=== PATIENT | male | born 1995 ===

== ENCOUNTER 2025-04-04 19:48 | Emergency (ER) | payer SELFPAY ==
[2025-04-04 19:51] VITALS: BP 131/79
[2025-04-04] MEDS: ADACEL 0.5 ML IM (22:59)
--- NOTE | 2025-04-05 00:53 | ED.GENMED ---
History of Present Illness
General
Chief Complaint: Skin Surface Trauma
Source: patient
Exam Limitations: none
Time Seen by Provider: 04/04/25 22:00
Nursing documentation reviewed up to this point in time: agreed with
History of Present Illness
History of Present Illness:
29-year-old male with no significant medical history presents to the ER for evaluation of a finger laceration. Patient cut his left middle finger in a metal gate and sustained a laceration to the palmar aspect of the digit. Came to the ER for
assessment. Unsure of his last tetanus shot. No other injuries or complaints.
Review of Systems
Review of Systems
All Other Systems: ROS reviewed and negative except as documented in HPI and ROS
Skin: Reports other (Finger laceration)
Phy Exam
Physical Exam
Physical Exam:
General: Well appearing and non-toxic
HEENT: protecting airway
Neck: appears supple
CV: No evidence of cyanosis
Resp: No accessory muscle use
Abd: Non-distended
Extremities: No deformities
Neuro: Alert
Psych: Normal affect
Skin: Patient has a 3 cm vertical linear laceration on the palmar aspect of the left third digit; no exposed flexor tendon on exploration of the wound through range of motion and good strength on flexion against resistance of the finger; no foreign
body noted in the wound; he does have some swelling of the soft tissue around the laceration he also has some slight swelling of the fourth digit�initially he had wedding ring in place but we were able to remove this
Scores
Heart Failure Risk
Heart Failure Risk Score: Not Applicable
Heart Score for Chest Pain Patients
STEMI patient?: Not applicable
Withdrawal Assessment of Alcohol
Withdrawal Assessment Completed?: Not applicable
Course
Orders/Labs/Results
Orders:
Orders
04/04/25 19:53
Finger(s)/Thumb 2 View Lt [CR Finger(s)/thumb Min 2 Vw Lt] Urgent
Comment:
Reason For Exam: pain/swelling/injury
Indicate Which Finger:: Middle Finger
04/04/25 22:55
Tetanus/Diphth/Acelpertussis [Adacel] 0.5 ml IM .ONCE ONE
Vital Signs
Initial and Last Documented VS:
Initial Vital Signs
Temp Pulse Resp BP Pulse Ox
36.8 C 74 18 131/79 100
04/04/25 19:51 04/04/25 19:51 04/04/25 19:51 04/04/25 19:51 04/04/25 19:51
Last Documented Vital Signs
Temp Pulse Resp BP Pulse Ox
36.8 C 74 18 131/79 100
04/04/25 19:51 04/04/25 19:51 04/04/25 19:51 04/04/25 19:51 04/04/25 19:51
Procedures
Laceration Closure
Left Third Finger(s):
Status of Wound: dirty
Size of Wound in cm: 3
Description of Wound Edges: sharp
Preparation: cleaned with Betadine
Anesthesia: 1% Lidocaine and Digital-Regional
Revision/Debridement: routine- no revision
Wound exploration: extensive cleaning of contaminated wound and no tendon involvement
Type of Closure: single layer closure
Skin Closure Material: 5-0 nylon (5)
Number of sutures: 5
Splinting/Sling Placement
Left Third Finger(s):
Procedure completed by: Sridhar Carr MD
Type of splint: aluminium finger
Splint material: aluminum-foam
Splint checked by provider?: Yes
Normal distal neurovascular exam?: Yes
MDM/Problems Addressed
Differential Diagnosis Includes:
Finger laceration
MDM/Problems Addressed:
29-year-old male presents with a finger laceration as described above. No foreign body noted on inspection of the wound, no exposed tendon on wound exploration and no signs on exam of flexor tendon injury. X-ray shows no fracture and no radiopaque
foreign body. Wound was vigorously irrigated and repaired as documented procedure note. Finger splint placed to help with wound healing. Given instructions for suture removal, wound care and return precautions. Tetanus updated. All questions
answered
*Radiology
Radiology exam reviewed: preliminary read by ED provider and radiology read reviewed
*Pulse Oximetry
SaO2: 100
Oxygen Mode of Delivery: Room air
Patient hypoxic: no (100%)
*Critical Care Note
Total Time (30-74mins, 75-104mins- exclusive of procedures): Not Applicable
Data Reviewed
Source: patient
ED Attending Note
-
Portions of this chart may have been created with voice recognition software.� Occasional wrong word or��sound alike� substitutions may have occurred due to the inherent limitations of voice recognition software.
Discharge Plan
Departure
Patient Disposition: Home (Routine Discharge)
Date of Disposition: 04/04/25
Time of Disposition: 22:49
Patient with high blood pressure during this ER visit?: No
Discharge Problem:
Finger laceration
Instructions: Laceration Repair With Stitches (DC)
Referrals:
UNKNOWN - PT DOES,NOT KNOW [Family Provider]
Activity Restrictions/Additional Instructions:
You were seen in the emergency room for a laceration to your finger. It was repaired with stitches. Your stitches must removed in a week. You can either follow-up with your primary doctor, go to urgent care, or return to the emergency room to
have your stitches removed. You should monitor your finger and if you notice any signs of infection return immediately for reassessment.
Interventions
Interventions:
*Risk Screen - Suicide Last Done: 04/04/25 19:51
*Neglect/Abuse Screening Last Done: 04/04/25 19:51
*Nursing Disposition Last Done: 04/04/25 23:08
ED-Skin Assessment Last Done: 04/04/25 23:08
Discharge Date and Time
Discharge Date/Time: 04/04/25 23:09
Print Language: [place]
== END 2025-04-04 23:09 | disposition home or self-care (01) ==
LOC: EMR 19:48
PROVIDERS: EMERGENCY PHYSICIAN Emergency Medicine
DX: S61.213A Laceration without foreign body of left middle finger without damage to nail, initial encounter (principal); W45.8XXA Other foreign body or object entering through skin, initial encounter; Z23 Encounter for immunization
CPT/HCPCS: 12042; 99283; 90471; 73140; 90715